=== PATIENT | female | born 1940 | race Caucasian/White ===

== ENCOUNTER 2018-01-22 07:15 | Inpatient (IN) | payer OTHER ==
[~2018-01-22] VITALS: Ht 152.4 cm; Wt 72.6 kg
[2018-01-22] MEDS ORDERED: METFORMIN HCL500 MG PO (10:15)
[2018-01-22] MEDS ORDERED: NAPR500T14 PO (10:15)
[2018-01-22] MEDS ORDERED: B COMPLEX WITH1 EACH PO (10:16)
[2018-01-22] MEDS ORDERED: VITAMIN D31000 UNI1 PO (10:18)
[2018-01-22] MEDS ORDERED: MAPAP80 MG/2.5 PO (10:18)
[2018-01-22] MEDS ORDERED: LEVO-T25 MCG PO (10:18)
== END 2018-02-01 14:44 | DRG 470 ==
LOC: O/R 01-30 05:45 → SURH 01-30 07:00
PROVIDERS: Orthopaedic Surgery
PROC: 0SRD0JZ Replacement of Left Knee Joint with Synthetic Substitute, Open Approach (ICD-10-PCS; principal; 2018-01-30 07:00)
DX: M17.12 Unilateral primary osteoarthritis, left knee (principal)